=== PATIENT | female | born 1985 | race Caucasian/White ===

== ENCOUNTER 2016-08-28 15:16 | Inpatient (IN) | payer MEDICARE ==
[~2016-08-28] VITALS: Ht 157.5 cm; Wt 72.7 kg
[~2016-08-28 15:16] MED LIST: [UNRECOGNIZED DRUG - CODE] AFFECT_EYE
[2016-08-28 15:27] VITALS: BP 124/76; PULSE 91; RESP 16; O2SAT 98
[2016-08-28] MEDS ORDERED: SULF1TAB35 PO (15:34)
[2016-08-28] MEDS ORDERED: CEPH-512 PO (15:34)
--- NOTE | 2016-08-28 18:31 | ED.REPORT ---
HPI-Rash / Abscess Date of Service Aug 28, 2016 ED Provider: Corwin Leiva DO Pt is a 30 y.o. female who presents to the ED from [facility] c/o a rash onset 2 days ago. Pt states that she was seen at [facility] 2 days ago and dx with a right auxiliary infection after an I&D of an abscess, she was started on Bactrim and Keflex. Pt states that she began to develop fevers (101.7F) and that her infection was not improving so she went to the [facility]. They recommended that she come into the ED for further evaluation. Pt denies nausea, vomiting, diarrhea, and chills. She also denies additional abscesses or rashes. Nursing Notes Stated Complaint: INFECTION/FEVER- SENT BY [facility] Chief Complaint: Skin Rash/Abscess Nursing Notes Reviewed: Yes Allergies: Coded Allergies: ceftriaxone (Verified Allergy, Mild, rash, 08/28/16) cephalexin (Verified Allergy, Mild, Rash, 08/28/16) Penicillins (Verified Allergy, Unknown, Anaphylaxis, 02/02/16) Scheduled Cephalexin (Keflex) 500 Mg Capsule 500 MG PO QID Sulfamethoxazole/Trimeth 800-160 mg (Bactrim DS 800-160 mg) 1 Each Tablet 1 TABLET PO BID Scheduled PRN Aspirin/Acetaminophen/Caffeine (Qjasskw-Dnkiqburizyxb-Kwsf Tab) 250 Mg-250 Mg- 65 Mg Tablet 2 EACH PO Q8H PRN PRN For Headache Ibuprofen (Ibuprofen) 200 Mg Capsule 200-400 MG PO QID PRN PRN For Pain General Time Seen by MD: 18:31 Chief Complaint Rash Hx Obtained From: Patient Arrived By: Walk-in Onset Occurred: 2 days ago Symptom Duration: Since onset Location: : Axilla Quality: Painful Severity: Current: Severe Recent Healthcare: Recent doctor visit Past Medical History Past Medical History anxiety pseudo-seizures partially deaf Past Surgical History Denies Family History noncontributory Smoking History Never Smoker Social History Alcohol Use: "Social" Drug Use: Denies drug use Other Social History: Good social support Ambulatory Status Independent Review of Systems Constitutional: Reports: Fever (101.7F), Denies: Chills GI: Denies: Diarrhea, Nausea, Vomiting Skin: Reports Rash Complete sys rev & neg: except as marked. Physical Exam Initial Vital Signs Vital Signs (First) Date Time Temp Pulse Resp B/P Pulse Ox O2 Delivery O2 Flow Rate FiO2 3/9/17 15:27 37.4 91 16 124/76 98 Room Air Initial VS: Reviewed Head / Eyes: Atraumatic, Normocephalic Abdomen / GI: No distention Extremities: Vascular intact, Neuro intact Neurologic: Alert, Oriented, Nonfocal Psychiatric: Mood/affect normal, Behavior normal, Normal thought content General/Constitutional: Awake, Alert, Well appearing Skin: Warm, Dry Rash / Lesion Location: Positive: Arm R, Axilla (cellulitic, surrounding abscess) Abscess Notes: Drained abscess with packing present Abscess #1 Location/Condition: Positive: Axilla R... Respiratory / Chest: Atraumatic, Breath sounds NL, Breath sounds = bilat, No respiratory distress, No rales, No rhonchi, No wheezing, No retractions, No stridor Cardiovascular: Heart rate NL, Regular rhythm, Heart sounds NL, Peripheral circulation NL Interpretation & Diagnostics Lab Results Interpretation Result Diagram: 08/28/16 1900 08/28/16 1900 Test 08/28/16 19:00 08/28/16 22:16 White Blood Count 12.2th/mm3 (3.8-10.1) Red Blood Count 4.30mil/mm3 (3.90-5.20) Hemoglobin 12.2g/dL (12.0-15.6) Hematocrit 36.9% (35.0-46.0) Mean Corpuscular Volume 85.8fL (81-100) Mean Corpuscular Hemoglobin 28.4pg (27.0-35.0) Mean Corpuscular Hemoglobin Concent 33.1% (32.0-37.0) Red Cell Distribution Width 12.2% (12.3-15.4) Platelet Count 314bil/L (150-400) Neutrophils (%) (Auto) 62.6% (40-74) Lymphocytes (%) (Auto) 23.8% (14-46) Monocytes (%) (Auto) 6.8% (4-12) Eosinophils (%) (Auto) 6.2% (0-5) Basophils (%) (Auto) 0.3% (0-3) Hold Purple Top Tube Received (Received) Hold Blue Top Tube Received (Received) Sodium Level 135mEq/L (134-144) Potassium Level 3.8mEq/L (3.5-5.2) Chloride Level 99mEq/L (97-108) Carbon Dioxide Level 21mmol/L (18-29) Blood Urea Nitrogen 11mg/dL (6-20) Creatinine 1.14mg/dL (0.57-1.00) Estimat Glomerular Filtration Rate 80mL/min (>59) Glucose Level 89mg/dL (60-99) Lactic Acid Level 1.6mmol/L (0.4-2.0) Calcium Level 8.8mg/dL (8.5-10.1) Total Bilirubin 0.2mg/dL (0.0-1.2) Aspartate Amino Transf (AST/SGOT) 19U/L (0-50) Alanine Aminotransferase (ALT/SGPT) 14U/L (0-32) Alkaline Phosphatase 60U/L (25-150) Total Protein 6.7g/dL (6.4-8.4) Albumin 3.9g/dL (3.4-5.0) HCG Beta Subunit 0.500mIU/mL Hold [place] Top Tube Received (Received) Hold [place] Top Tube Received (Received) Hold Urine Received (Received) US Soft Tissue/Musculoskeletal IMPRESSION: Phlegmonous appearing area distal to the recently drained abscess in the right axilla. No defined abscess or loculated fluid collections are identified. Dictated by: Sy Bhagat M.D. on 08/28/2016 at 21:35 Approved by: Sy Bhagat M.D. on 08/28/2016 at 21:39 Re-Eval/Medical Decision Re-Evaluation/Progress : Time of Eval: 20:41 Re-Evaluation/Progress Note: Pt rechecked. Pt is reacting poorly to Rocephin and now has hives present. Discussed plan for admit. Consultation #1: Referral / Consult Name: Golden Nuno MD Call Returned at: 21:44 [employer] Supervisor: Will see patient, Agrees with eval, Agrees with plan Note: Discussed pt condition. Would like CT performed and pt NPO after midnight. Consultation #2: Referral / Consult Name: Db Santacruz MD Consulted With: Hospitalist Call Returned at: 22:01 Note: Discussed pt condition and consult with Dr. Nuno. Accepts admit. Counseled Regarding: Diagnosis Discharge & Departure Impression: Primary Impression: Cellulitis Site of cellulitis: extremity Site of cellulitis of extremity: upper extremity Laterality: right Qualified Code: L03.113 - Cellulitis of right upper limb Additional Impression: Abscess Disposition: ADMITTED TO HOSPITAL Discharge Condition All VS Reviewed: Yes Condition: Improved Referrals: [facility] (PCP) Cierra Attestation Portions of this note were transcribed by Klaus Baires. I, Dr. Leiva personally performed the history, physical exam and medical decision-making; I reviewed and confirmed the accuracy of the information in the transcribed note. Signed by : Cierra Dominique, 08/28/16 and 2204. copies to: [facility] Corwin Leiva DO Aug 28, 2016 18:31 KLAUS BAIRES Aug 28, 2016 19:16
[2016-08-28] MEDS ORDERED: cefTRIAXone Inj 2,000 MG in Dextrose 5% Minibag Plus 50 ML IV ONE (19:35)
[2016-08-28 19:37] LABS: BASOPHILS % (AUTO) 0.3 % (0-3); EOSINOPHILS % (AUTO) 6.2 % (0-5); MONOCYTES % (AUTO) 6.8 % (4-12); Mean Corpuscular Hemoglobin 28.4 pg (27.0-35.0); Mean Corpuscular Volume 85.8 fL (81-100); NEUTROPHILS % (AUTO) 62.6 % (40-74); Platelet Count 314 bil/L (150-400)
[2016-08-28] MEDS: HYDROmorphone 0.5 mg/0.5 mL iSecure Syringe IVPUSH PRN (20:19)
[2016-08-28] MEDS ORDERED: MethylprednisoLONE Sodium Succinate 62.5 mg/mL 2 mL Inj IVPUSH ONE (20:45)
[2016-08-28 21:15] VITALS: BP 126/85; PULSE 94; RESP 20; O2SAT 100
--- NOTE | 2016-08-28 21:40 | DRSVH ---
PROCEDURE: US EXTREMITY SONOGRAM LIMITED ([id number]) INDICATIONS: right arm infection, look for abscess TECHNIQUE: Real-time scanning was performed of the right upper extremity, with image documentation. COMPARISON: None. FINDINGS: There has been in the right upper arm an abscess drained on 08/26/16 and the axillary area. I n this area there is artifact from hair. Distal to this and thought to be in the arm is an irregular hypoechoic area thought to be developing abscess. It is somewhat phlegmonous and measures overall 28 x 6 x 14 mm. It is not a fluid collection that is drainable by needle at this point. It is not encaps ulated and no prominent flow around it is seen. IMPRESSION: Phlegmonous appearing area distal to the recently drained abscess in the right axilla. No defined abscess or loculated fluid collections are identified. Dictated by: Sy Bhagat M.D. on 08/28/2016 at 21:35 Approved by: Sy Bhagat M.D. on 08/28/2016 at 21:39
[2016-08-28] MEDS ORDERED: ASPI-1148 PO (21:54)
[2016-08-28] MEDS ORDERED: IBUP200C PO (21:54)
[2016-08-28] MEDS ORDERED: Polyethylene Glycol (PEG) 17 Gm Powder PO PRN (22:25)
[2016-08-28] MEDS ORDERED: Ondansetron 2 mg/mL 2 mL Inj IVPUSH PRN (22:25)
[2016-08-28] MEDS ORDERED: Alum-Mag Hydrox-Simeth 30 mL Suspension PO PRN (22:25)
[2016-08-28 22:49] VITALS: BP 120/74; PULSE 91; RESP 16; O2SAT 98
[2016-08-28 23:10] VITALS: BP 105/80; PULSE 80; RESP 18; O2SAT 96
[2016-08-28] MEDS: Vancomycin Dose per Pharmacist XX SCH (23:10)
--- NOTE | 2016-08-28 23:32 | PCM.HPMED ---
Subjective Date of Service Aug 28, 2016 Primary Provider: Admitting Physician: [facility]: Admit Status: From the Emergency Department Chief Complaint: arm pain, redness, and swelling History of Present Illness: 30-year-old female with history of left axillary abscess drainage one month ago presented to the emergency department with increasing swelling, redness and pain after drainage of right axillary abscess at [facility] emergency Department 2 days ago. She first noticed development of the cyst in her right axilla about 2 weeks ago in that time it has become increasingly inflamed and growing in size. Patient was placed on Bactrim at the time of drainage which she was treated with after her left axillary incision and drainage with no complications. She was seen in the residency clinic yesterday and placed additionally on Keflex, a line was drawn around the area of erythema for monitoring purposes. Last night patient began feeling generally worse with chills and sweats, she also had decreased appetite and nausea without vomiting. She reports muscle aches throughout her body worse in her right upper extremity and joint pain in her elbow and wrist of her right arm. She reports a fever measured at 101.7 this morning. Upon presentation to the emergency department redness had extended past the marking. Additionally, Patient had hives, she was started on ceftriaxone and hives began to acutely worsen starting with her chest attributable to the ceftriaxone, she was given 50 mg Benadryl and 125 mg Methylprednisolone with resolution of hives by the time of our visit. Review of Systems: A comprehensive review of systems was conducted with the patient and found to be negative except as above in the History of Present Illness. Allergies Coded Allergies: ceftriaxone (Verified Allergy, Mild, rash, 09/03/16) cephalexin (Verified Allergy, Mild, Rash, 09/03/16) Penicillins (Verified Allergy, Unknown, Anaphylaxis, 09/03/16) Uncoded Allergies: IV Benadryl (Adverse Reaction, Intermediate, 08/29/16) felt like she had no control of her own body Home Medications 1. Excedrin when necessary for headaches 2. Bactrim double strength daily 3. Keflex 500 twice a day for 2 doses PMH 1. 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 Pseudoseizures, patient was on Topamax for about 7 years and discontinued last November. 3. Partially deaf 4. Anxiety 5. Painful breast lumps, recurring, status post left lumpectomy Surgical History Left breast lumpectomy one year ago Family History Paternal grandfather with prostate cancer, paternal grandmother with ovarian cancer Mother with breast cancer Maternal grandfather with heart attack Maternal grandmother with lung cancer Social History Occupation: online marketing Hx Alcohol Use: Yes Alcoholic Drinks Per Day: 2-3 glasses red wine, 2-3 days per week Hx Substance Use: No Hx Tobacco Use: No Smoking Status: Never Smoker Living Arrangement: with Family (single mother of 4-year-old boy) with Friends/Roommate (hospital remained) Exam Vital Signs Vital Sign - Last Date Time Temp Pulse Resp B/P Pulse Ox O2 Delivery O2 Flow Rate FiO2 08/28/16 22:49 37.4 91 16 120/74 98 08/28/16 21:15 Room Air Exam General: No acute distress, well-developed, well-nourished, appropriately interactive HEENT: Normocephalic, atraumatic. External ears without defect. Pupils equal, round, and reactive to light and accommodation. Anicteric sclerae, moist conjunctivae, and no lid lag. Oropharynx free of erythema with moist mucosa. Neck: Supple with full range of motion. No jugular venous distension. No lymphadenopathy or thyromegaly. Cardiovascular: Regular rate and rhythm with no murmurs, rubs, or gallops appreciated Pulmonary: Clear to auscultation bilaterally with no crackles, wheezes, or rhonchi. Normal respiratory effort with no use of accessory muscles. Abdomen: Bowel tones present. Soft, nontender, nondistended. No hepatosplenomegaly or masses appreciated. Extremities: Right upper extremity with mild erythema radiating from the axilla , pen line in place with mild erythema reaching beyond medication. Wick in place with pus and sero-sanguineous discharge. No defect or lump felt in left axilla, no discharge present, well-healed scar from prior I&D. No clubbing, cyanosis, edema, or lymphadenopathy appreciated. Skin: With the exception of right upper extremity Normal temperature, turgor, and texture; no rash, ulcers, or subcutaneous nodules appreciated. Neurological: Cranial nerves grossly intact. Normal muscle strength, tone, and bulk. No known gait impairment. Psychiatric: Normal mood and affect. Alert and oriented to person, place, and time. Lab and Diagnostics Result Diagram: 3/9/17 1900 3/9/17 1900 Additional Diagnostics: PROCEDURE: US EXTREMITY SONOGRAM LIMITED ([id number]) FINDINGS: There has been in the right upper arm an abscess drained on 08/26/16 and the axillary area. In this area there is artifact from hair. Distal to this and thought to be in the arm is an irregular hypoechoic area thought to be developing abscess. It is somewhat phlegmonous and measures overall 28 x 6 x 14 mm. It is not a fluid collection that is drainable by needle at this point. It is not encapsulated and no prominent flow around it is seen. IMPRESSION: Phlegmonous appearing area distal to the recently drained abscess in the right axilla. No defined abscess or loculated fluid collections are identified. Dictated by: Sy Bhagat M.D. on 08/28/2016 at 21:35 Assessment & Plan 30-year-old female with history of left axillary abscess drainage one month ago presented to the emergency department with increasing swelling, redness and pain after drainage of right axillary abscess at [facility] emergency Department 2 days ago. 1. Right axillary and upper arm cellulitis with abscess, present on admission, active. -Right axilla tender, warm, with advancing redness. WBC 12.2. -Symptoms progressive despite 2-day outpatient treatment with Bactrim and 2 doses of Keflex. -Agree with 1 g Vancomycin IV q 12 hrs started emergency department -Add Levofloxacin 750 mg Q24H -Noroco 5/325 PRN pain -Lactic acid 1.6 -Procalcitonin and CBC with differential in the morning -Will attempt to contact [place] for abscess fluid culture results -Patient to be kept NPO -Case discussed with Dr. Nuno of general surgery, he will see patient in AM with possible procedure. Surgery consult ordered. Day team to follow up her recommendations 2. Likely Hidradenitis suppurativa, present on admission, active. -Diagnosis supported by Typical lesions (abscesses), locations (axillae), and relapse (previous treatment of left axilla abscess). -Patient notes scrapping with razor to precipitate condition -Treatment includes weight management. Avoidance of dairy foods and high glycemic load diets which have been shown to be helpful, even in non-obese patients. 3. Cephalosporin allergy, chronic, resolved. -Childhood allergy to penicillin -Mild hives noted upon presentation to ED (patient was on Keflex). -Hives acutely worsened with dose of 2g Ceftriaxone in ED. -Treated with 125 mg Methylprednisolone and 50 mg Diphenhydramine. 4. Acute Kidney injury, present on admission, presumed acute -Creatinine elevated to 1.14 upon presentation with a BUN of 11, in March 2016 creatinine was 0.83 -Possibly due to dehydration or possibly acute interstitial nephritis as a drug reaction from antibiotics -Urinalysis pending -1 L NS to be given at a rate of 150 mL per hour -BNP in the a.m. -Consider nephrology consult if this does not resolve 5. Migraine with occasional hemiplegic features, present on admission, chronic. -Patient previously received Topamax for seven years but discontinued treatment last November. -Patient reports 2-3 migraines/yr adequately treated with Advil. -Last episode (04/01/2016) mimicked stroke, however, hemiplegic features resolved with migraine treatment. 6. Anxiety, present on admission, chronic. -Patient states desire to holistically treat anxiety 7. Pseudoseizures, present on admission, chronic. -Patient states controlled without medication. No record of events found. Acetaminophen for mild pain when necessary. Bowel regimen Senna and MiraLAX PRN. Zofran when necessary for nausea and vomiting. DVT prophylaxis with sub cutaneous Lovenox Patient was admitted under inpatient status with expected length of stay greater than 2 midnights due to severity of presenting symptoms, risk of adverse event, and complexity of treatment plan. Pain Evaluation: Adequate Pain Control GI Prophylaxis: Not indicated VTE Prophylaxis: Sub-Q Enoxaparin VTE Mechanical Devices: Intermittant Pneumatic CD Resuscitation Status: CPR: Attempt Resuscitation Attending Statement The patient was seen and examined together with Dr. Cruz on 08/28 and I agree with the history, exam and plan as outlined in the note above. copies to: Ray Pace Erika R DO Aug 28, 2016 23:32 Db Santacruz MD Aug 29, 2016 05:14
[2016-08-29] MEDS: levoFLOXacin Inj 750 MG in IV Premix 1 EACH IV SCH ×2 (00:32→22:33)
[2016-08-29] MEDS: HYDROcodone-APAP 5-325 mg Tablet PO PRN ×5 (00:33→22:35)
[2016-08-29] MEDS ORDERED: HYDR-4003 PO (00:39)
[2016-08-29] MEDS ORDERED: SULF1TAB35 PO (00:39)
[2016-08-29] MEDS ORDERED: CEPH500C PO (00:39)
[2016-08-29] MEDS ORDERED: IBUP800T28 PO (00:39)
--- NOTE | 2016-08-29 02:59 | NUR ---
Admit Patient arrived to unit at 2310, able to self transfer to bed. Oriented to room, and call light. Admission completed, patient denies CP, SOB, and abdominal pain at this time. Right Auxiliary pain at 7/10.
[2016-08-29 04:31] LABS: APPEARANCE,URINE SLIGHTLY CLOUDY (CLEAR,HAZY); COLOR,URINE YELLOW (YELLOW); OCCULT BLOOD,URINE NEGATIVE (NEGATIVE); UROBILINOGEN,URINE NORMAL (NORMAL)
[2016-08-29 04:38] VITALS: BP 115/67; PULSE 80; RESP 20; O2SAT 98
[2016-08-29] MEDS: 0.9% Sodium Chloride 1,000 ML IV SCH ×3 (05:06→17:20)
--- NOTE | 2016-08-29 06:25 | NUR ---
Pain Pain not adequately controlled with 1 [place], 2 tabs provided improved pain relief. Pt has been NPO for anticipated procedure. Minimal drainage from wick site. Hourly rounding ongoing.
[2016-08-29 07:43] LABS: BASOPHILS % (AUTO) 0.1 % (0-3); EOSINOPHILS % (AUTO) 0 % (0-5); MONOCYTES % (AUTO) 0.8 % (4-12); Mean Corpuscular Hemoglobin 28.3 pg (27.0-35.0); NEUTROPHILS % (AUTO) 93.1 % (40-74); Platelet Count 310 bil/L (150-400)
[2016-08-29] MEDS: Vancomycin Dose per Pharmacist XX SCH (08:30)
[2016-08-29] MEDS: Vancomycin 1 Gm/200 mL NS Premix IV SCH ×2 (09:01→19:48)
[2016-08-29] MEDS: HYDROmorphone 0.5 mg/0.5 mL iSecure Syringe IVPUSH PRN (09:02)
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
--- NOTE | 2016-08-29 11:21 | NUR ---
Social Work- Initial Assessment Data: See Initial Assessment. Pt is a 30 year old female admitted 08/28/16 for abscess per H&P. Pt's insurance is [employer]. Pt's PCP is Soraida Negron at the [facility]idency [facility]. BASILIA met with pt and friend Rose [phone] at bedside regarding discharge plan, SW role explained. Pt alert and oriented x3. Pt resides in [place] with her son and roommate where she remains independent with her ADLs. Pt [place] no DME at base and drives. Pt has no HH or SNF history. Pt has no LTC insurance or VA benefits. SW spoke with pt regarding DPOA, SW provided DPOA paperwork. Pt to discharge home with friend to transport via POV. No anticipated discharge needs. SW will continue to follow. Assessment: [place]. Plan: Pt to discharge home with friend to transport via POV. No anticipated discharge needs. SW will continue to follow. SCOTT Romero Addendum: 08/29/16 at 1124 by ROSANNE PINEDA Amended: Links added.
[2016-08-29 11:38] VITALS: BP 160/75; PULSE 104; RESP 20; O2SAT 97
[2016-08-29] MEDS ORDERED: predniSONE 20 mg Tablet PO ONE (16:35)
[2016-08-29 17:05] LABS: BASOPHILS % (AUTO) 0.1 % (0-3); EOSINOPHILS % (AUTO) 0.4 % (0-5); MONOCYTES % (AUTO) 7.1 % (4-12); NEUTROPHILS % (AUTO) 83.2 % (40-74); Platelet Count 342 bil/L (150-400)
[2016-08-29 17:20] VITALS: BP 130/81; PULSE 90; RESP 16; O2SAT 100
[2016-08-29] MEDS: diphenhydrAMINE 25 mg Capsule PO PRN (17:24)
[2016-08-29 17:31] LABS: Bilirubin, Direct 0.2 mg/dL (0.0-0.3)
--- NOTE | 2016-08-29 18:28 | PCM.PHAPRO ---
Progress Date of Service: Aug 29, 2016 arm pain, redness, and swelling Vancomycin Management Per Pharmacy: Indication: Cellulitis Age: 30 yo Weight: 72.7 kg Labs: WBC:12.2 -> 10.8 SrCr: 1.14 -> 0.8 mg/dL Vitals: BP: Stable HR: 80-100 BPM Temp: No fevers Nephrotoxic Risks: Bactrim use outpatient Recommendation: Load: Vancomycin 1500 mg IV x 1 (20 mg/kg in ED last night) Maintenance: 1000 mg IV Q12h (~14 mg/kg/dose), dosing on lower end due to mild CAROL on admit and outpt Bactrim use which may still be affecting renal clearance Trough: Tomorrow on 08/30 @ 1999, may need increase at that time Thank You, Grace Navarrete, Pharm D. Grace Navarrete Aug 29, 2016 18:28
--- NOTE | 2016-08-29 18:48 | NUR ---
Pain/cellulitis Patient with pain rated 7-8/10 to right axilla area. Axilla area red, swollen and with small amount ooze from site after surgeon was here and removed wick from incision site. Patient will be reevaluated tomorrow to assess if needed for surgical drainage. Patient with noted rash to upper chest and neck which increased this afternoon . patient was given oral Benadryl and prednisone. Pt had some time of euphoria with iv Benadryl but does take po Benadryl at home with no problems.
[2016-08-29] MEDS: Famotidine Inj 20 MG in IV Premix 1 EACH IV SCH (19:47)
[2016-08-30 00:10] VITALS: BP 105/63; PULSE 81; RESP 18; O2SAT 98
[2016-08-30] MEDS: 0.9% Sodium Chloride 1,000 ML IV SCH ×4 (02:37→20:00)
--- NOTE | 2016-08-30 03:15 | NUR ---
Pain Pain medication ineffective at this time. Pt c/o pain within 2 hours of receiving. States no change in level of pain. Wound actively draining sanguineous fluid with little pressure. Hard lumps noted surrounding wound, painful with palpation. locations one medial and one superior of wound. Denial of CP, SOB abdominal discomfort. C/O axilla pain 7/10 shooting into shoulder. Ice pack given upon request.
[2016-08-30 04:50] VITALS: BP 107/66; PULSE 87; RESP 20; O2SAT 96
[2016-08-30] MEDS: HYDROcodone-APAP 5-325 mg Tablet PO PRN ×4 (05:07→21:05)
[2016-08-30 07:14] LABS: BASOPHILS % (AUTO) 0.1 % (0-3); EOSINOPHILS % (AUTO) 0.5 % (0-5); MONOCYTES % (AUTO) 4.9 % (4-12); Mean Corpuscular Hemoglobin 27.6 pg (27.0-35.0); Mean Corpuscular Volume 85.5 fL (81-100); NEUTROPHILS % (AUTO) 85.7 % (40-74); Platelet Count 322 bil/L (150-400)
[2016-08-30 07:34] LABS: Magnesium 1.9 mg/dL (1.6-2.6); Phosphorus 2.5 mg/dL (2.5-4.9)
[2016-08-30] MEDS ORDERED: predniSONE 20 mg Tablet PO SCH (08:00)
[2016-08-30] MEDS: Vancomycin Dose per Pharmacist XX SCH (08:30)
[2016-08-30] MEDS: HYDROmorphone 1 mg/mL Inj IVPUSH PRN ×3 (08:56→23:36)
[2016-08-30] MEDS: diphenhydrAMINE 25 mg Capsule PO PRN ×2 (08:58→21:13)
[2016-08-30] MEDS: Vancomycin 1 Gm/200 mL NS Premix IV SCH (09:04)
[2016-08-30] MEDS: Famotidine Inj 20 MG in IV Premix 1 EACH IV SCH ×2 (09:04→19:49)
[2016-08-30 10:02] VITALS: BP 125/81; PULSE 96; RESP 17; O2SAT 99
--- NOTE | 2016-08-30 11:05 | PCM.PNSURG ---
Subjective Date of Service: Aug 30, 2016 Visit Information: Recurrent cellulitis R Axilla Date of Admission: Aug 28, 2016 at 23:40 Hospital Day # 2 Subjective: Packing removed and washed area yesterday Objective Vital Sign- Last 8 Hours Date Time Temp Pulse Resp B/P Pulse Ox O2 Delivery O2 Flow Rate FiO2 08/30/16 10:02 36.7 96 17 125/81 99 Room Air 08/30/16 04:50 36.5 87 20 107/66 96 Room Air Intake and Output- Last 8 Hour 08/30/16 Cumulative From/Thru 07:00 08/28/16 15:27 - 08/30/16 04:51 Intake Total 1720 ml 2920 ml Output Total 1600 ml Balance 1720 ml 1320 ml Intake Oral 1200 ml IV Total 1720 ml 1720 ml Output Urine Total 1600 ml SURGICAL WOUND : Wound Location/Description No residual cellulitis Result Diagram: 08/30/16 0640 08/30/16 0640 Assessment & Plan Impression Doing well Problems: Plan No indication for surgical intervention Could be hidradenitis suppurativa. Discussed supportive measures Okay to discharge Please call if any question VTE Prophylaxis: Sub-Q Enoxaparin Thang Perez MD Aug 30, 2016 11:05
[2016-08-30] MEDS ORDERED: diphenhydrAMINE-Zinc 2%-0.1% 30 Gm Cream TOPICAL PRN (11:25)
--- NOTE | 2016-08-30 12:34 | PCM.PNMED ---
Subjective Date of Service Aug 30, 2016 Subjective patient was still symptomatic, noticed large amount of purulent discharge, self drained by patient overnight, yesterday pt c/o spreading rash so [id number] given, STAT cmp didn't show any eosinophils, no transaminitis. pt remained afebrile c/o itchiness with vancomycin so benadryl is given. cleared from surgery this AM Exam Vital Signs Vital Sign - Last Date Time Temp Pulse Resp B/P Pulse Ox O2 Delivery O2 Flow Rate FiO2 08/30/16 10:02 36.7 96 17 125/81 99 Room Air Intake and Output 08/29/16 08/29/16 08/30/16 Cumulative From/Thru 15:00 23:00 07:00 08/28/16 15:27 - 08/30/16 04:51 Intake Total 800 ml 1720 ml 2920 ml Output Total 800 ml 1600 ml Balance 0 ml 1720 ml 1320 ml Intake Oral 800 ml 1200 ml IV Total 1720 ml 1720 ml Output Urine Total 800 ml 1600 ml Exam NAD, comfortably laying down on the bed diffuse very mild erythema on anterior chest, proximal bilateral UE. no JVD, MMM, no LAD RRR, nl s1, s2 no mrg CTAB, no w,c S,ND,NT,normoactive BS+ warm, no edema, pulses 2/2 MSK: Rt axilla , mild indurated closed ulcer, soft, no fluctuance, erythema- markedly improved. IVs and Medications Medications Reviewed: Medications were reviewed in detail Lab and Diagnostics Result Diagram: 08/30/16 0640 08/30/16 0640 Additional Diagnostics PROCEDURE: US EXTREMITY SONOGRAM LIMITED ([id number]) FINDINGS: There has been in the right upper arm an abscess drained on 08/26/16 and the axillary area. In this area there is artifact from hair. Distal to this and thought to be in the arm is an irregular hypoechoic area thought to be developing abscess. It is somewhat phlegmonous and measures overall 28 x 6 x 14 mm. It is not a fluid collection that is drainable by needle at this point. It is not encapsulated and no prominent flow around it is seen. IMPRESSION: Phlegmonous appearing area distal to the recently drained abscess in the right axilla. No defined abscess or loculated fluid collections are identified. Dictated by: Sy Bhagat M.D. on 08/28/2016 at 21:35 Assessment & Plan 30-year-old female with history of left axillary abscess drainage one month ago presented to the emergency department with increasing swelling, redness and pain after drainage of right axillary abscess at [facility] emergency Department 2 days ago. acute, active 1. Right axillary and upper arm cellulitis with abscess, POA, likely from razor injury. Right axilla tender, warm, with progression of erythema, WBC 12.2. Symptoms progressive despite 2-day outpatient treatment with Bactrim and 2 doses of Keflex.Culture from [place] ED for abscess fluid showed (spoke to , ED physician) MRSA Sensitive to vanc, linezolid, dapto, Resistant to cipro, clinda, levo -started on vancomycin, added Levofloxacin 750 mg Q24H, clinically improving, will stop levofloxacin today given culture results. likely send home with linezolid 70-10days course. -Noroco 5/325 PRN pain, added dilaudid 1mg q4h -appreciate surgery input. no indication for surgery -Hidradenitis suppurativawas suspected, however, no chronic nature despite preceding left sided abscess, clear etiology of using razor, would treat as typical MRSA abscess/cellulitis. If it recurrent or unresolving likely needs further eval with dermatology, ID. -trends wbc, fever curve, pt still has persistent leukocytosis. #persistent diffuse erythema, developed with CFX allergy on adm, no signs of DRESS, most likely infusion reaction of vancomycin, will slow the rate, try benadryl, chronic, stable, resolved #PCN/Cephalosporin allergy, Childhood allergy to penicillin, Mild hives noted upon presentation to ED (patient was on Keflex), Hives acutely worsened with dose of 2g Ceftriaxone in ED, resolved with with 125 mg Methylprednisolone and 50 mg Diphenhydramine. #CAROL, POA, resolved with IVF #Migraine with occasional hemiplegic features, Patient previously received Topamax for seven years but discontinued treatment last November, Patient reports 2- 3 migraines/yr adequately treated with Advil. Last episode (04/01/2016) mimicked stroke, however, hemiplegic features resolved with migraine treatment. 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
[2016-08-30 16:48] VITALS: BP 124/74; PULSE 99; RESP 17; O2SAT 98
--- NOTE | 2016-08-30 18:03 | NUR ---
Pain/Cellulitis- Patient complaining of 7-8/10 right axillae pain. Vicodin and Ibuprofen given for discomfort. IV Dilaudid given for break through pain when oral not effective, and patient says it brings pain level to 3. She noticed increased redness in right arm and in left upper arm during Vanco infusion. Benadryl given during infusion along with topical cream with some relief of symptoms.
[2016-08-30] MEDS ORDERED: Vancomycin Serum Trough XX ONE (20:00)
[2016-08-30 20:54] VITALS: BP 134/92; PULSE 95; RESP 20; O2SAT 99
[2016-08-30] MEDS: Vancomycin Inj 1,250 MG in 0.9% Sodium Chloride 250 ML IV SCH (22:05)
[2016-08-31] MEDS: 0.9% Sodium Chloride 1,000 ML IV SCH ×3 (02:40→17:51)
--- NOTE | 2016-08-31 03:21 | PCM.PHAPRO ---
Progress arm pain, redness, and swelling VANCOMYCIN DOSING PER PHARMACY Indication: cellulitis Trough: 7.2 SCr: stable WBC: 13 ; afebrile Given subtherapeutic level, will increase dose to 1250mg q12hrs with trough scheduled for 09/01 @0930. Pharmacy will continue to monitor. Brendan Bro Aug 31, 2016 03:21
[2016-08-31] MEDS: HYDROcodone-APAP 5-325 mg Tablet PO PRN ×3 (04:47→18:41)
[2016-08-31 05:15] VITALS: BP 126/82; PULSE 87; RESP 20; O2SAT 100
[2016-08-31 06:03] LABS: BASOPHILS % (AUTO) 0.6 % (0-3); EOSINOPHILS % (AUTO) 9.1 % (0-5); MONOCYTES % (AUTO) 8.1 % (4-12); Mean Corpuscular Hemoglobin 27.8 pg (27.0-35.0); NEUTROPHILS % (AUTO) 42.7 % (40-74); Platelet Count 270 bil/L (150-400)
[2016-08-31 06:37] LABS: Magnesium 1.7 mg/dL (1.6-2.6); Phosphorus 3.2 mg/dL (2.5-4.9)
[2016-08-31] MEDS: Vancomycin Dose per Pharmacist XX SCH (08:30)
[2016-08-31] MEDS: Famotidine Inj 20 MG in IV Premix 1 EACH IV SCH ×2 (09:06→20:22)
[2016-08-31] MEDS: HYDROmorphone 1 mg/mL Inj IVPUSH PRN ×3 (09:18→21:30)
[2016-08-31] MEDS: Vancomycin Inj 1,250 MG in 0.9% Sodium Chloride 250 ML IV SCH ×2 (10:26→21:30)
[2016-08-31] MEDS: diphenhydrAMINE 25 mg Capsule PO PRN ×2 (10:50→17:51)
--- NOTE | 2016-08-31 12:47 | NUR ---
Dressing right axilla Removed gauze dressing that pt had taped to her right axilla. Small amount of dried serosanguineous drainage noted on gauze. No visible drainage from axilla noted now. Plastic tape also left red markings on pt's skin. Suggested that pt leave axilla open to air. Check pt's axilla for drainage later this a.m., and no drainage noted. Pt's skin remains slightly red near the axilla and distal also along the axillary line. Care continues.
[2016-08-31 14:29] VITALS: BP 123/85; PULSE 102; RESP 16; O2SAT 97
--- NOTE | 2016-08-31 14:55 | NUR ---
ANGÉLICA Signed SCOTT Spivey
--- NOTE | 2016-08-31 15:27 | PCM.PNMED ---
Subjective Date of Service Aug 31, 2016 Subjective Patient was seen and examined at bedside today. Patient denies any chest pain, shortness of breath, nausea, vomiting, diarrhea. Patient is concerned about her abscesses seems to be little anxious. Education was done today in order to help alleviate some of the patient's concerns. Exam Vital Signs Vital Sign - Last Date Time Temp Pulse Resp B/P Pulse Ox O2 Delivery O2 Flow Rate FiO2 08/31/16 14:29 36.1 102 16 123/85 97 Room Air Intake and Output 08/30/16 08/30/16 08/31/16 Cumulative From/Thru 15:00 23:00 07:00 08/28/16 15:27 - 08/31/16 06:58 Intake Total 400 ml 1236 ml 800 ml 5356 ml Output Total 700 ml 2650 ml 4950 ml Balance -300 ml 1236 ml -1850 ml 406 ml Intake Oral 400 ml 1236 ml 800 ml 3636 ml IV Total 1720 ml Output Urine Total 700 ml 2650 ml 4950 ml # Voids 1 4 5 10 # Bowel Movements 0 3 3 Exam Physical Exam: GEN: Patient was awake, alert, responding appropriately to questions HEENT: PERRLA, EOMI, Neck soft supple, trachea midline, nomocephalic/atraumatic CV: +S1/S2, RRR, no murmur auscultated Respiratory: CTAB, no wheezes, rales, rhonchi GI: +bowel sounds x4, soft, compressible, non TTP EXT: no c/c/e, right axilla I&D site dressing in place clean dry and intact, area is still mildly raised but non-erythematous or edematous. Skin: Macular rash secondary to medication allergies significantly improved, mild macular rash on anterior thorax significantly improved, positive tenderness to palpation in right axilla Neuro: CN II-XII grossly intact Psych: mood and affect were appropriate IVs and Medications Medications Reviewed: Medications were reviewed in detail Lab and Diagnostics Result Diagram: 08/31/1653308/31/16533 Additional Diagnostics PROCEDURE: US EXTREMITY SONOGRAM LIMITED ([id number]) FINDINGS: There has been in the right upper arm an abscess drained on 08/26/16 and the axillary area. In this area there is artifact from hair. Distal to this and thought to be in the arm is an irregular hypoechoic area thought to be developing abscess. It is somewhat phlegmonous and measures overall 28 x 6 x 14 mm. It is not a fluid collection that is drainable by needle at this point. It is not encapsulated and no prominent flow around it is seen. IMPRESSION: Phlegmonous appearing area distal to the recently drained abscess in the right axilla. No defined abscess or loculated fluid collections are identified. Dictated by: Sy Bhagat M.D. on 08/28/2016 at 21:35 Assessment & Plan 30-year-old female with history of left axillary abscess drainage one month ago presented to the emergency department with increasing swelling, redness and pain after drainage of right axillary abscess at [facility] emergency Department 2 days ago. acute, active Right axillary and upper arm cellulitis with abscess, POA, likely from razor injury. Right axilla tender, warm, with progression of erythema, WBC 12.2. Symptoms progressive despite 2-day outpatient treatment with Bactrim and 2 doses of Keflex.Culture from [place] ED for abscess fluid showed (spoke to , ED physician) MRSA Sensitive to vanc, linezolid, dapto, Resistant to cipro, clinda, levo -Continue on IV vancomycin, Levofloxacin 750 mg Q24H was discontinued on 2016 per culture results, clinically improving, likely send home with linezolid 7-10days course. -Noroco 5/325 PRN pain, stop dilaudid 1mg q4h -appreciate surgery input. no indication for surgery -Hidradenitis suppurativawas suspected, however, no chronic nature despite preceding left sided abscess, clear etiology of using razor, would treat as typical MRSA abscess/cellulitis. If it recurrent or unresolving likely needs further eval with dermatology and ID. -trend wbc, fever curve, pt still has persistent leukocytosis. Allergic drug reaction to vancomycin (macular rash) -Persistent diffuse erythema (improved), developed with CFX allergy on adm, no signs of DRESS (drug rash with eosinophilia and systemic symptoms) - Most likely infusion reaction of vancomycin, the patient has responded well with a decreased rate of infusion and Benadryl chronic, stable, resolved #PCN/Cephalosporin allergy, Childhood allergy to penicillin, Mild hives noted upon presentation to ED (patient was on Keflex), Hives acutely worsened with dose of 2g Ceftriaxone in ED, resolved with with 125 mg Methylprednisolone and 50 mg Diphenhydramine. #CAROL, POA, resolved with IVF #Migraine with occasional hemiplegic features, Patient previously received Topamax for seven years but discontinued treatment last November, Patient reports 2- 3 migraines/yr adequately treated with Advil. Last episode (04/01/2016) mimicked stroke, however, hemiplegic features resolved with migraine treatment. 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 The patient will receive 1 more day of IV antibiotics and will be continued to monitored for any further signs of allergies to medications. The patient will most likely be discharged home on linezolid tomorrow barring any further drug reactions or other adverse reactions. GI Prophylaxis: Not indicated VTE Prophylaxis: Sub-Q Enoxaparin VTE Mechanical Devices: Intermittant Pneumatic CD Time spent Greater than 35 minutes Diana Barbosa DO Aug 31, 2016 15:00
--- NOTE | 2016-08-31 15:51 | NUR ---
Pain, swelling Pt reports increased swelling and hardened lump in her right axilla. Lump is quarter-size, reddened, and hot to the touch. Pt states that the lump has become larger today and has increased her pain. Hospitalist notified of this finding via [employer] page. Administered 1 mg IVP Dilaudid for pt's pain. Pt has also received 800 mg Motrin and 2 hydrocodone tabs for pain, and 25 mg PO Benadryl for itching. Pt c/o itching in the right axilla and bilateral thighs also. Hospitalist called and stated she would come see pt again. Care continues.
[2016-08-31 20:44] VITALS: BP 119/82; PULSE 104; RESP 18; O2SAT 98
[2016-09-01] MEDS: HYDROcodone-APAP 5-325 mg Tablet PO PRN ×2 (00:51→08:25)
--- NOTE | 2016-09-01 01:30 | NUR ---
Pain Pt reporting pain to right armpit 6-03/01 and is taking [address] Pt reporting headache that usually comes after taking Lane, pt was given Motrin for this. Pt did need med for breakthrough pain relief, given IV Dilaudid 1mg. On reassessment, pt sleeping and appears comfortable. Ice packs on and off to right armpit. Right armpit slightly pink, swollen. Continue to monitor.
[2016-09-01] MEDS: 0.9% Sodium Chloride 1,000 ML IV SCH ×4 (03:39→16:54)
[2016-09-01 05:20] VITALS: BP 118/76; PULSE 104; RESP 18; O2SAT 100
[2016-09-01 06:47] LABS: Mean Corpuscular Hemoglobin 27.5 pg (27.0-35.0); Mean Corpuscular Volume 85.7 fL (81-100)
[2016-09-01 08:20] VITALS: BP 109/66; PULSE 102; RESP 16; O2SAT 97
[2016-09-01] MEDS: Famotidine Inj 20 MG in IV Premix 1 EACH IV SCH ×2 (08:25→20:30)
[2016-09-01] MEDS: Vancomycin Dose per Pharmacist XX SCH (08:30)
[2016-09-01] MEDS ORDERED: Vancomycin Serum Trough XX ONE (09:30)
--- NOTE | 2016-09-01 11:33 | PCM.PHAPRO ---
Progress Vancomycin Management: -pt is currently receiving Vancomycin 1.25gm iv q12 for cellulitis -trough level returned this morning at 9.6 -goal level for cellulitis is 10-15 -serum creatinine 0.83, afebrile, wbc 7.8 -will continue with current regimen and monitor Aniya Pace [facility] Sep 01, 2016 11:33
[2016-09-01] MEDS: Vancomycin Inj 1,250 MG in 0.9% Sodium Chloride 250 ML IV SCH (11:37)
--- NOTE | 2016-09-01 13:05 | PCM.DIMED ---
Discharge Instructions Date of Service Sep 01, 2016 Dates of Hospitalization Aug 28, 2016 at 23:40 Discharge Diagnosis Discharge Diagnosis Right axillary cellulitis with abscess Vancomycin reaction Acute kidney injury (resolved) Anxiety Migraine Medication Instructions Please take all of her medications as prescribed please do not save any pills or a later use. Diet Heart Healthy Activity No restrictions (gradually return to normal daily activities) Call your provider Fever or Chills, Shortness of breath, Vomitting, Excessive diarrhea, Weakness ( unilateral) Patient Instructions Follow-up with PCP in: 1 week (Dr. Delong [phone] if an appointment has not been made please call to schedule an appointment) Diana Barbosa DO Sep 01, 2016 12:45
[2016-09-01] MEDS ORDERED: LINE600T7 PO (13:09)
--- NOTE | 2016-09-01 13:45 | PCM.DC.MED ---
Discharge Summary Date of Service Sep 01, 2016 Dates of Hospitalization Date of Hospital Admission Aug 28, 2016 at 23:40 Date of Discharge: Sep 01, 2016 Providers: Admitting Physician: Db Santacruz MD Primary Care Physician: WILLIAM [facility] Residency Attending Physician: Db Santacruz MD Diagnosis at Time of Discharge Diagnosis at Time of Discharge Right axillary cellulitis with abscess Vancomycin reaction Acute kidney injury (resolved) Anxiety Migraine Consultations Surgery Dr. godinez Procedures Other Diagnostics PROCEDURE: US EXTREMITY SONOGRAM LIMITED ([id number]) FINDINGS: There has been in the right upper arm an abscess drained on 08/26/16 and the axillary area. In this area there is artifact from hair. Distal to this and thought to be in the arm is an irregular hypoechoic area thought to be developing abscess. It is somewhat phlegmonous and measures overall 28 x 6 x 14 mm. It is not a fluid collection that is drainable by needle at this point. It is not encapsulated and no prominent flow around it is seen. IMPRESSION: Phlegmonous appearing area distal to the recently drained abscess in the right axilla. No defined abscess or loculated fluid collections are identified. Dictated by: Sy Bhagat M.D. on 08/28/2016 at 21:35 Brief History 30-year-old female with history of left axillary abscess drainage one month ago presented to the emergency department with increasing swelling, redness and pain after drainage of right axillary abscess at [facility] emergency Department 2 days ago. She first noticed development of the cyst in her right axilla about 2 weeks ago in that time it has become increasingly inflamed and growing in size. Patient was placed on Bactrim at the time of drainage which she was treated with after her left axillary incision and drainage with no complications. She was seen in the residency clinic yesterday and placed additionally on Keflex, a line was drawn around the area of erythema for monitoring purposes. Last night patient began feeling generally worse with chills and sweats, she also had decreased appetite and nausea without vomiting. She reports muscle aches throughout her body worse in her right upper extremity and joint pain in her elbow and wrist of her right arm. She reports a fever measured at 101.7 this morning. Upon presentation to the emergency department redness had extended past the marking. Additionally, Patient had hives, she was started on ceftriaxone and hives began to acutely worsen starting with her chest attributable to the ceftriaxone, she was given 50 mg Benadryl and 125 mg Methylprednisolone with resolution of hives by the time of our visit. Hospital Course 30-year-old female with history of left axillary abscess drainage one month ago presented to the emergency department with increasing swelling, redness and pain after drainage of right axillary abscess at [facility] emergency Department 2 days ago. Patient responded well to antibiotic therapy. Patient's vancomycin rash also completely resolved. Erythema in the right axillary region receded with IV antibiotic administration and completely resolved by the time of discharge. Patient still had some cellulitic masses in the axilla that were tender to palpation. Patient is encouraged to continue her antibiotic therapy for the next 10 days linezolid 600 mg twice a day this will complete a full 14 day course of antibiotics. The patient has been instructed that she needs to follow -up with her PCP at [phone] in the residency clinic. Patient is currently clinically stable and ready for discharge. Patient's white blood cell count is 7.8 (within normal limits) both the patient's procalcitonin and lactic acid are normal. acute, active Right axillary and upper arm cellulitis with abscess, POA, likely from razor injury. Right axilla tender, warm, with progression of erythema, WBC 12.2. Symptoms progressive despite 2-day outpatient treatment with Bactrim and 2 doses of Keflex.Culture from [facility] for abscess fluid showed (spoke to , ED physician) MRSA Sensitive to vanc, linezolid, dapto, Resistant to cipro, clinda, levo -Continue on IV vancomycin discontinued on 09/01/2016, Levofloxacin 750 mg Q24H was discontinued on 08/30/2016 per culture results, clinically improving, likely send home with linezolid 7-10days course. -Noroco 5/325 PRN pain, stop dilaudid 1mg q4h -appreciate surgery input. no indication for surgery -Hidradenitis suppurativawas suspected, however, no chronic nature despite preceding left sided abscess, clear etiology of using razor, would treat as typical MRSA abscess/cellulitis. If it recurrent or unresolving likely needs further eval with dermatology and ID. -trend wbc, fever curve, pt still has persistent leukocytosis. -Discontinue IV vancomycin 09/01/2016 start linezolid 600 mg twice a day Allergic drug reaction to vancomycin (macular rash) -Persistent diffuse erythema (improved), developed with CFX allergy on adm, no signs of DRESS (drug rash with eosinophilia and systemic symptoms) - Most likely infusion reaction of vancomycin, the patient has responded well with a decreased rate of infusion and Benadryl chronic, stable, resolved #PCN/Cephalosporin allergy, Childhood allergy to penicillin, Mild hives noted upon presentation to ED (patient was on Keflex), Hives acutely worsened with dose of 2g Ceftriaxone in ED, resolved with with 125 mg Methylprednisolone and 50 mg Diphenhydramine. #CAROL, POA, resolved with IVF #Migraine with occasional hemiplegic features, Patient previously received Topamax for seven years but discontinued treatment last November, Patient reports 2- 3 migraines/yr adequately treated with Advil. Last episode (04/01/2016) mimicked stroke, however, hemiplegic features resolved with migraine treatment. -currently stable, monitor sx for now #Anxiety, not active #Pseudoseizures, not on AED, stable dispo: likely 2more days if patient clinically stable, diet: general diet Full Code dvt ppx: LMWH Exam Vital Signs (Last) Date Time Temp Pulse Resp B/P Pulse Ox O2 Delivery O2 Flow Rate FiO2 09/01/16 08:20 37.0 102 16 109/66 97 Room Air Exam Physical Exam: GEN: Patient was awake, alert, responding appropriately to questions HEENT: PERRLA, EOMI, Neck soft supple, trachea midline, nomocephalic/atraumatic CV: +S1/S2, RRR, systolic murmur auscultated Respiratory: CTAB, no wheezes, rales, rhonchi GI: +bowel sounds x4, soft, compressible, non TTP EXT: no c/c/e lower extremity, right axillary cellulitic lesions firm erythematous or edematous Skin: Macular rash secondary to vancomycin resolved Neuro: CN II-XII grossly intact Psych: mood and affect were appropriate Test 08/28/16 19:00 08/28/16 22:16 08/29/16 06:45 08/29/16 17:00 Hold Purple Top Tube Received (Received) Hold Blue Top Tube Received (Received) Lactic Acid Level 1.6mmol/L (0.4-2.0) HCG Beta Subunit 0.500mIU/mL Hold [place] Top Tube Received (Received) Hold Lazo Top Tube Received (Received) Urine Color Yellow (YELLOW) Urine Appearance Slightly cloudy Urine pH 6.0 (5.0-8.0) Urine Specific [place] 1.025 (1.003-1.035) Urine Protein Negativemg/dL (NEG,TRACE) Urine Glucose (UA) Negativemg/dL (NEGATIVE) Urine Ketones 15mg/dL (NEGATIVE) Urine Occult Blood Negative (NEGATIVE) Urine Nitrite Negative (NEGATIVE) Urine Bilirubin Negative (NEGATIVE) Urine Urobilinogen Normalmg/dL (NORMAL) Urine Leukocyte Esterase Negative (NEGATIVE) Urine RBC 0-2/hpf (0-2) Urine WBC 0-5/hpf (0-5) Urine Epithelial Cells Many/hpf (NONE-MOD) Urine Crystals Amorphous urates (NONE Urine Bacteria Few/hpf (NONE-FEW) Urine Hyaline Casts None/lpf (NONE) Urine Granular Casts None seen (NONE SEEN) Urine Waxy Casts None seen (NONE SEEN) Urine Red Blood Cell Casts None seen (NONE SEEN) Urine White Blood Cell Casts None seen (NONE SEEN) Urine Mucus Present (None Seen) Urine Trichomonas None seen (NONE SEEN) Urine Yeast None (NONE SEEN) Urinalysis Comment None Hold Urine Received (Received) Direct Bilirubin 0.2mg/dL (0.0-0.3) Test 08/31/16 05:34 09/01/16 06:17 09/01/16 10:08 Neutrophils (%) (Auto) 42.7% (40-74) Lymphocytes (%) (Auto) 39.0% (14-46) Monocytes (%) (Auto) 8.1% (4-12) Eosinophils (%) (Auto) 9.1% (0-5) Basophils (%) (Auto) 0.6% (0-3) Phosphorus Level 3.2mg/dL (2.5-4.9) Magnesium Level 1.7mg/dL (1.6-2.6) Procalcitonin 0.03ng/mL (0.00-0.08) White Blood Count 7.8th/mm3 (3.8-10.1) Red Blood Count 4.55mil/mm3 (3.90-5.20) Hemoglobin 12.5g/dL (12.0-15.6) Hematocrit 39.0% (35.0-46.0) Mean Corpuscular Volume 85.7fL (81-100) Mean Corpuscular Hemoglobin 27.5pg (27.0-35.0) Mean Corpuscular Hemoglobin Concent 32.1% (32.0-37.0) Red Cell Distribution Width 12.4% (12.3-15.4) Platelet Count 304bil/L (150-400) Sodium Level 136mEq/L (134-144) Potassium Level 4.6mEq/L (3.5-5.2) Chloride Level 100mEq/L (97-108) Carbon Dioxide Level 24mmol/L (18-29) Blood Urea Nitrogen 7mg/dL (6-20) Creatinine 0.83mg/dL (0.57-1.00) Estimat Glomerular Filtration Rate 116mL/min (>59) Glucose Level 83mg/dL (60-99) Calcium Level 8.5mg/dL (8.5-10.1) Total Bilirubin 0.2mg/dL (0.0-1.2) Aspartate Amino Transf (AST/SGOT) 50U/L (0-50) Alanine Aminotransferase (ALT/SGPT) 43U/L (0-32) Alkaline Phosphatase 51U/L (25-150) Total Protein 6.0g/dL (6.4-8.4) Albumin 3.7g/dL (3.4-5.0) Vancomycin Level Trough 9.6mcg/mL Discharge Medications Discharge Medications Ibuprofen (Ibuprofen) 800 Mg Tablet 800 MG PO TID (Reported) Linezolid (Linezolid) 600 Mg Tablet 600 MG PO BID Prescribed by: VISH PALMER, DO As needed Aspirin/Acetaminophen/Caffeine (Sbycedi-Pkqvwagirerhc-Gnap Tab) 250 Mg-250 Mg- 65 Mg Tablet 2 EACH PO Q8H PRN PRN For Headache (Reported) Hydrocodone-Acetaminophen 5-325 mg (Hydrocodone-Acetaminophen 5-325 mg) 1 Each Tablet 1 TABLET PO QID PRN PRN For Pain (Reported) Ibuprofen (Ibuprofen) 200 Mg Capsule 200-400 MG PO QID PRN PRN For Pain ( Reported) Additional med instructions Please take all of her medications as prescribed please do not save any pills or a later use. Followup Plan Disposition: Stable condition being discharged home Discharge Diet: Heart Healthy Discharge Activity: No restrictions (gradually return to normal daily activities) Follow-up with PCP in: 1 week (Dr. Delong [phone] if an appointment has not been made please call to schedule an appointment) Time spent Greater than 35 minutes copies to: Darek Delong Precious L DO Sep 01, 2016 13:45
[2016-09-01 16:22] VITALS: BP 107/72; PULSE 91; RESP 17; O2SAT 96
--- NOTE | 2016-09-01 17:23 | PCM.PNMED ---
Subjective Date of Service Sep 01, 2016 Subjective Patient was seen and examined at bedside today. Patient denies any chest pain, shortness of breath, nausea, vomiting, diarrhea. Patient was scheduled to discharge today however patient had severe migraine and is currently not tolerating her diet and also is complaining of fever and chills so there is some concerns that the patient's infection is not responding well to the oral linezolid. Exam Vital Signs Vital Sign - Last Date Time Temp Pulse Resp B/P Pulse Ox O2 Delivery O2 Flow Rate FiO2 09/01/16 16:22 37.1 91 17 107/72 96 Room Air Intake and Output 08/31/16 08/31/16 09/01/16 Cumulative From/Thru 15:00 23:00 07:00 08/28/16 15:27 - 09/01/16 06:33 Intake Total 4137 ml 2028 ml 35811 ml Output Total 2700 ml 7650 ml Balance 1437 ml 2028 ml 3871 ml Intake Oral 1400 ml 536 ml 5572 ml IV Total 2737 ml 1492 ml 5949 ml Output Urine Total 2700 ml 7650 ml # Voids 2 12 # Bowel Movements 3 Exam Physical Exam: GEN: Patient was awake, alert, responding appropriately to questions HEENT: PERRLA, EOMI, Neck soft supple, trachea midline, nomocephalic/atraumatic CV: +S1/S2, RRR, systolic murmur auscultated Respiratory: CTAB, no wheezes, rales, rhonchi GI: +bowel sounds x4, soft, compressible, non TTP EXT: no c/c/e lower extremity, right axillary cellulitic lesions firm erythematous or edematous Skin: Macular rash secondary to vancomycin resolved Neuro: CN II-XII grossly intact Psych: mood and affect were appropriate IVs and Medications Medications Reviewed: Medications were reviewed in detail Lab and Diagnostics Result Diagram: 09/01/1661609/01/16616 Additional Diagnostics PROCEDURE: US EXTREMITY SONOGRAM LIMITED (14032) FINDINGS: There has been in the right upper arm an abscess drained on 08/26/16 and the axillary area. In this area there is artifact from hair. Distal to this and thought to be in the arm is an irregular hypoechoic area thought to be developing abscess. It is somewhat phlegmonous and measures overall 28 x 6 x 14 mm. It is not a fluid collection that is drainable by needle at this point. It is not encapsulated and no prominent flow around it is seen. IMPRESSION: Phlegmonous appearing area distal to the recently drained abscess in the right axilla. No defined abscess or loculated fluid collections are identified. Dictated by: Sy Bhagat M.D. on 08/28/2016 at 21:35 Assessment & Plan 30-year-old female with history of left axillary abscess drainage one month ago presented to the emergency department with increasing swelling, redness and pain after drainage of right axillary abscess at [facility] emergency Department 2 days ago. acute, active Right axillary and upper arm cellulitis with abscess, POA, likely from razor injury. Right axilla tender, warm, with progression of erythema, WBC 12.2. Symptoms progressive despite 2-day outpatient treatment with Bactrim and 2 doses of Keflex.Culture from [place] ED for abscess fluid showed (spoke to , ED physician) MRSA Sensitive to vanc, linezolid, dapto, Resistant to cipro, clinda, levo -Continue on IV vancomycin discontinued on 09/01/2016, Levofloxacin 750 mg Q24H was discontinued on 08/30/2016 per culture results, clinically improving, likely send home with linezolid 7-10days course. -Noroco 5/325 PRN pain, stop dilaudid 1mg q4h -appreciate surgery input. no indication for surgery -Hidradenitis suppurativawas suspected, however, no chronic nature despite preceding left sided abscess, clear etiology of using razor, would treat as typical MRSA abscess/cellulitis. If it recurrent or unresolving likely needs further eval with dermatology and ID. -trend wbc, fever curve, pt still has persistent leukocytosis. -Discontinue IV vancomycin 09/01/2016 start linezolid 600 mg twice a day Migraine -OMT - Tylenol and ibuprofen -Continue to monitor Allergic drug reaction to vancomycin (macular rash) -Persistent diffuse erythema (improved), developed with CFX allergy on adm, no signs of DRESS (drug rash with eosinophilia and systemic symptoms) - Most likely infusion reaction of vancomycin, the patient has responded well with a decreased rate of infusion and Benadryl chronic, stable, resolved #PCN/Cephalosporin allergy, Childhood allergy to penicillin, Mild hives noted upon presentation to ED (patient was on Keflex), Hives acutely worsened with dose of 2g Ceftriaxone in ED, resolved with with 125 mg Methylprednisolone and 50 mg Diphenhydramine. #CAROL, POA, resolved with IVF #Migraine with occasional hemiplegic features, Patient previously received Topamax for seven years but discontinued treatment last November, Patient reports 2- 3 migraines/yr adequately treated with Advil. Last episode (04/01/2016) mimicked stroke, however, hemiplegic features resolved with migraine treatment. -currently stable, monitor sx for now #Anxiety, not active #Pseudoseizures, not on AED, stable diet: general diet Full Code dvt ppx: LMWH Disposition: The patient was stable earlier and ready to be discharged home however the patient developed a migraine with aura but then started having chills. We will monitor the patient for one more day to ensure that the patient 's infection is not resurfacing and that it is continuing to be responding to linezolid. Patient should be ready for discharge home tomorrow. GI Prophylaxis: Not indicated VTE Prophylaxis: Sub-Q Enoxaparin VTE Mechanical Devices: Intermittant Pneumatic CD Time spent Greater than 35 minutes Diana Barbosa DO Sep 01, 2016 17:23
--- NOTE | 2016-09-01 20:00 | NUR ---
ACTIVITY Patient continues to complain of a migraine headache. Motrin and APAP PO administered. Via FELDT scale patients pain level is 0/10. Patient would be noted to be napping in her room after her pain medication. Patient complained of nausea this morning. She is relating this to her migraines. She has been tolerating her meals and PO liquids fairly. No emesis noted. Denies SOB. Patient's puncture site is CDI. No drainage noted. She has been ambulating independently in the room. Tolerating activity well. D/C on hold at this time. PO ABT started. Care continues.
[2016-09-01 20:53] VITALS: BP 116/74; PULSE 94; RESP 18; O2SAT 97
--- NOTE | 2016-09-02 03:32 | NUR ---
Headache Pt reporting headache 9/10 and right armpit pain 5/10 and requested to have Motrin 800mg. On reassessment, pt sleeping and appears comfortable. Pt did not want to take IV pepcid at bedtime since she has been SL and felt she did not need it. Right armpit appears less red today, small puncture site open to air, no drainage. Pt has been able to sleep most of shift.
[2016-09-02 06:16] VITALS: BP 111/69; PULSE 108; RESP 18; O2SAT 95
[2016-09-02 07:54] LABS: Mean Corpuscular Hemoglobin 27.6 pg (27.0-35.0)
[2016-09-02] MEDS: Famotidine Inj 20 MG in IV Premix 1 EACH IV SCH (08:30)
[2016-09-02] MEDS ORDERED: Butalbital-Acet-Caffeine Tablet PO ONE (08:45)
--- NOTE | 2016-09-02 11:10 | NUR ---
Social work Note - Readiness for D/C RN TELEMETRY met with Pt - Pt states she is feeling better and is ready to d/c home today. Her friend will drive her home. Pt states she has support and will follow up with her PCP next week. No other needs identified. Plan: Home today in POV> BRI [place]
--- NOTE | 2016-09-02 13:03 | NUR ---
DISCHARGE PATIENT DISCHARGED HOME WITH SPOUSE.PATIENT GIVEN HARD COPY OF SCRIPT FOR ANTIBIOTIC. PATIENT GIVEN VERBAL AND WRITTEN DC INSTRUCTIONS AND AGREED TO UNDERSTANDING THEM. PATIENT WILL FOLLOW UP WITH DR IN 1 WEEK. PATIENT'S BELONGINGS SENT HOME WITH PATIENT.
[2016-09-03] MEDS ORDERED: ONDA4TAB12 PO (15:09)
[2016-09-03] MEDS ORDERED: METR500T19 PO (15:09)
[2016-09-03] MEDS ORDERED: LACT1CAP65 PO (15:16)
== END 2016-09-02 12:40 | disposition home or self-care (01) | DRG 603 ==
LOC: SED 15:16 → OSC 23:40
PROVIDERS: ADMIT Hospitalist; ATTEND Hospitalist
DX: L03.111 Cellulitis of right axilla (principal); G43.409 Hemiplegic migraine, not intractable, without status migrainosus; L27.1 Localized skin eruption due to drugs and medicaments taken internally; F17.200 Nicotine dependence, unspecified, uncomplicated; Z79.82 Long term (current) use of aspirin; T36.8X5A Adverse effect of other systemic antibiotics, initial encounter; B95.62 Methicillin resistant Staphylococcus aureus infection as the cause of diseases classified elsewhere; Y92.230 Patient room in hospital as the place of occurrence of the external cause

== ENCOUNTER 2016-09-03 10:43 | Emergency (ER) | payer MEDICARE ==
[~2016-09-03 10:43] MED LIST changes: +ASPI-1148 PO; +HYDR-4003 PO; +IBUP200C PO; +IBUP800T28 PO; +LINE600T7 PO; -[UNRECOGNIZED DRUG - CODE] AFFECT_EYE
[2016-09-03 10:44] VITALS: BP 126/80; PULSE 96; RESP 18; O2SAT 98
[2016-09-03] MEDS ORDERED: Ondansetron 8 mg ODT Tablet PO ONE (12:50)
--- NOTE | 2016-09-03 12:51 | ED.REPORT ---
HPI-NVD Date of Service Sep 03, 2016 ED Provider: Samuel Mendes MD Chetna is otherwise healthy 30-year-old female who presents with a chief complaint of vomiting and diarrhea. Patient reports that she was discharged from the hospital yesterday after being treated inpatient for abscess/ cellulitis in her right axilla. Culture and sensitivity indicates MRSA susceptible to vancomycin, linezolid, daptomycin. Patient has been variably treated over the last week with by mouth Bactrim, Keflex and IV levofloxacin and vancomycin, which was DC'd yesterday. She was discharged home with a prescription for by mouth linezolid. However, she states that she cannot afford this medication as it will cost her $3000 for the course. Since her discharge she has had 2 episodes of nonbloody vomiting as well as any episodes of liquid diarrhea associated with abdominal cramps and lower back pain. She denies fever, chills, sweats, malaise, difficulty breathing, chest pain, . She reports that her abscess is healing well although areas of firmness remain. Nursing Notes Stated Complaint: DIARRHEA/VOMITING/NAUSEATED Chief Complaint: Female Abdominal Pain Nursing Notes Reviewed: Yes Allergies: Coded Allergies: ceftriaxone (Verified Allergy, Mild, rash, 09/03/16) cephalexin (Verified Allergy, Mild, Rash, 09/03/16) Penicillins (Verified Allergy, Unknown, Anaphylaxis, 09/03/16) Uncoded Allergies: IV Benadryl (Adverse Reaction, Intermediate, 08/29/16) felt like she had no control of her own body Scheduled Ibuprofen (Ibuprofen) 800 Mg Tablet 800 MG PO TID Lactobacillus Acidophilus (Probiotic) 1 Each Capsule 1 EACH PO DAILY Linezolid (Linezolid) 600 Mg Tablet 600 MG PO BID Metronidazole (Metronidazole) 500 Mg Tablet 500 MG PO TID Ondansetron ODT (Ondansetron ODT) 4 Mg Tab.rapdis 4-8 MG PO TID Scheduled PRN Aspirin/Acetaminophen/Caffeine (Ybumztc-Xrjgwdhsajzdj-Keot Tab) 250 Mg-250 Mg- 65 Mg Tablet 2 EACH PO Q8H PRN PRN For Headache Hydrocodone-Acetaminophen 5-325 mg (Hydrocodone-Acetaminophen 5-325 mg) 1 Each Tablet 1 TABLET PO QID PRN PRN For Pain Ibuprofen (Ibuprofen) 200 Mg Capsule 200-400 MG PO QID PRN PRN For Pain General Time Seen by MD: 12:44 Chief Complaint Diarrhea Past Medical History Past Medical History anxiety pseudo-seizures partially deaf Past Surgical History Denies Family History noncontributory Smoking History Never Smoker Social History Alcohol Use: "Social" Drug Use: Denies drug use Other Social History: Good social support Ambulatory Status Independent Review of Systems General: Denies fever, chills, malaise. HEENT: Denies congestion, headache, sore throat. Respiratory: Denies dyspnea, cough, shortness of breath, wheezing. Cardiovascular: Denies chest pain, palpitations. Gastrointestinal: Admits vomiting, diarrhea, abdominal pain. Genitourinary: Denies frequency, urgency, dysuria, hematuria. Denies . Otherwise as noted in HPI. Physical Exam General: Well appearing, well developed, well nourished, no acute distress. Head: Atraumatic, normocephalic. Eyes: No scleral icterus or injection. No discharge. Vision grossly intact. ENT: Voice clear, hearing grossly intact. Respiratory: Regular rate and rhythm. Breath sounds present, clear to auscultation and equal bilaterally. No respiratory distress. No increased work of breathing, speaks in complete sentences. Cardiovascular: Regular rate and rhythm, without murmur, gallop or rub. No pedal edema. Gastrointestinal: Mild global abdominal tenderness without guarding or rebound. Bowel sounds hyperactive. 2 cm ecchymosis on left anterior abdomen consistent with heparin injection. Skin: Warm and dry. Right axilla: 2 cm healing incision, no redness, swelling, discharge. There is a small area of tender firmness felt below the skin at approximately the 10 o' clock position to the incision. Neurological: Grossly nonfocal. Psychological: Alert and oriented. Speech appropriate, linear and logical. Behavior appropriate. Initial Vital Signs Vital Signs (First) Date Time Temp Pulse Resp B/P Pulse Ox O2 Delivery O2 Flow Rate FiO2 09/03/16 10:44 36.6 96 18 126/80 98 Room Air Initial VS: Reviewed, Vital signs normal Interpretation & Diagnostics Interpretation & Diagnostics: Labs from the recent days review Lab Results Interpretation Lab Results Interpretation: Stool studies for C. difficile pending Re-Eval/Medical Decision Med Decision/Clinical Course I discussed this case with Dr. Mendes. Dr. Mendes: This is a 30-year-old female recently admitted for MRSA abscess treated with vancomycin, discharged a prescription for linezolid which she was unable to fill due to expense. She then developed diarrhea and the diarrhea is what brought her to the emergency department today. The patient's nontoxic, soft nontender abdomen, normal vitals. She needs align her labs and just had recent laboratory studies. She is comfortable with this. I would be concerned given the multiple antibiotic exposures including a fluoroquinolone among others is the possibility of C. difficile. The patient has been able to give a stool sample, and stool for PCR C. difficile is pending-as explained. Likely resulted next couple days. However we have decided go ahead and initiate empiric treatment with oral Flagyl for this likely possibility. Lastly is concerned about the wounds which appear to be doing clinically well- the notes from the discharge summary implied cultures positive there were resistant to multiple meds, but I talked with the hospitalist is confined cultures, and it turns out the patient's had issues with clindamycin not listed allergy profile before. Further review the patient's a candidate for doxycycline which is a much less expensive and more available at [facility], and the hospital sexually wrote the prescription for this. She is being discharged home on oral Flagyl, she is also given a perception for an oral probiotic. She cannot finish the doxycycline, she will call tomorrow for results of the stool studies. Routine precautions reviewed. She is being discharged stable condition Source of Hx: Old records Consultation : Referral / Consult Name: Diana Barbosa DO Consulted With: Hospitalist (who was involved in her inpatient stay) Note: Discussed the antibiotics, Doxycline will be used instead of linezolid Discharge & Departure Impression: Primary Impression: Diarrhea Additional Impressions: C. difficile diarrhea Cellulitis Site of cellulitis: unspecified site Qualified Code: L03.90 - Cellulitis, unspecified Disposition: Home Discharge Condition All VS Reviewed: Yes Condition: Stable Patient Instructions: Acute Diarrhea (ED) Additional Instructions: Evaluation for vomiting and diarrhea in the emergency department. Considering your history of recent intense antibiotic therapy, we are concerned that this might be C. difficile colitis, an overgrowth of bacteria in your gut. The treatment for this is Flagyl, to be taken 3 times a day for 10 days. We have taken a stool sample in the emergency department. Please call back late tomorrow to get the results. If you are negative for C. difficile, he will be able to stop taking the Flagyl at that time. We discussed changing the antibiotic therapy for your cellulitis. Doxycycline will be less expensive and effective. Please take the doxycycline twice a day for 10 days. I will also provide you with a prescription for antinausea medication. Follow up with your primary care provider on Thursday as planned. Return to emergency department for new or worsening symptoms including increasing pain, fever, vomiting not controlled with medication. Referrals: [facility] (PCP) EDSupervising Provider for APC: Samuel Mendes MD Attending Statement I supervised and discussed this case with the mid-level provider, I also person contacted the social workers, discussed the case the hospitalist who admitted the patient before, reviewed the labs and inpatient notes to help coordinate care. copies to: [facility] Elijah Larsen PA-C Sep 03, 2016 12:51 Samuel Mendes MD Sep 03, 2016 15:27
[2016-09-03] MEDS ORDERED: METR500T19 PO (15:09)
[2016-09-03] MEDS ORDERED: ONDA4TAB12 PO (15:09)
[2016-09-03] MEDS ORDERED: LACT1CAP65 PO (15:16)
[2016-09-03 15:46] VITALS: BP 122/80; PULSE 95; RESP 16; O2SAT 94
== END 2016-09-03 15:46 | disposition home or self-care (01) ==
LOC: SED 10:43
DX: A04.7 Enterocolitis due to Clostridium difficile (principal); L03.111 Cellulitis of right axilla; B95.62 Methicillin resistant Staphylococcus aureus infection as the cause of diseases classified elsewhere; H91.90 Unspecified hearing loss, unspecified ear; Z86.69 Personal history of other diseases of the nervous system and sense organs; Z88.0 Allergy status to penicillin; Z88.1 Allergy status to other antibiotic agents

== ENCOUNTER 2016-09-09 10:06 | Emergency (ER) | payer MEDICARE ==
[~2016-09-09] VITALS: Ht 157.5 cm; Wt 72.7 kg
[~2016-09-09 10:06] MED LIST changes: +LACT1CAP65 PO; +METR500T19 PO; +ONDA4TAB12 PO
[2016-09-09 10:12] VITALS: BP 122/79; PULSE 92; RESP 16; O2SAT 99
--- NOTE | 2016-09-09 11:14 | ED.REPORT ---
HPI-Allergic Reaction Date of Service Sep 09, 2016 ED Provider: Michael Philip MD Pt is a previously healthy 30 y/o female presenting to the ED c/o diffuse rash onset 3 days ago. She was initially diagnosed with an axillary abscess and was admitted and treated with Vancomycin which caused hives and rash. She was switched to Keflex and had another rash reaction. She was discharged and subsequently developed diarrhea and was seen for this and diagnosed with colitis with concern for C. diff and was sent home on Trimethoprim sulfa and metronidazole which were started 09/03, last dose was yesterday. She was seen at [facility] yesterday for her rash and was told Bactrim may be the cause. She stopped the Bactrim but her rash is persistent and increasing. Pt is taking Benadryl 25 mg every 6 hours without relief. She is not taking steroids. Her rash has never fully resolved since leaving the hospital. She has also noticed sores about the sides of her mouth for 3 days, mild cough, swelling of the hands and feet. She describes her rash as burning and stinging without itching. She denies fever, chills, nausea, vomiting, vaginal sores. To summarize patient's treatment and antibiotic exposure thus far, the patient was seen here on 08/28 and admitted with a cellulitis and axillary abscess. She had previously been treated at [facility] with incision and drainage. Cultures grew out MRSA sensitive to vancomycin linezolid and daptomycin among others. Cultures are not available here, there were done at [facility]. She was treated with trimethoprim/sulfa prior to the admission without any adverse reaction. The patient was also treated with cephalexin, Notes indicate that the patient may have been reacting to that, she clearly had an acute reaction to Rocephin with immediate hives. Rocephin was discontinued vancomycin was started, she also apparently had a reaction to vancomycin on this though this was continued from the to the . During her hospitalization the patient reported that she continued to have hives on her chest wall. She was also treated with Levaquin while in the hospital and discharged with a prescription for linezolid. The patient never received linezolid as it was $3000 for the course and she did not fill the prescription. She was subsequently seen in the emergency department on the . The patient reported at that time she was concerned about needing continued antibiotics and has also developed diarrhea. Chart notes from the emergency department indicate that she was discharged with a prescription for doxycycline. Interestingly her bottle filled on 3:15 which the patient insists was prescribed at that emergency department visit was for trimethoprim sulfa. Also started on metronidazole oral at that time for presumed C. difficile. Stool was sent for C. difficile and has returned negative. The patient has had an increase in her rash and is complaining of burning in her palms and soles and she relates the onset of her increased symptoms to restarting trimethoprim sulfa. She reports that the symptoms of her axillary infections have completely resolved. Nursing Notes Stated Complaint: HIVES,SWOLLEN HANDS AND FEET Chief Complaint: Allergic Reaction Nursing Notes Reviewed: Yes Allergies: Coded Allergies: ceftriaxone (Verified Allergy, Mild, rash, 09/03/16) cephalexin (Verified Allergy, Mild, Rash, 09/03/16) Penicillins (Verified Allergy, Unknown, Anaphylaxis, 09/03/16) Uncoded Allergies: IV Benadryl (Adverse Reaction, Intermediate, 08/29/16) felt like she had no control of her own body Scheduled Ibuprofen (Ibuprofen) 800 Mg Tablet 800 MG PO TID Lactobacillus Acidophilus (Probiotic) 1 Each Capsule 1 EACH PO DAILY Linezolid (Linezolid) 600 Mg Tablet 600 MG PO BID Methylprednisolone (MethylprednisoLONE Dose Caleb) 4 Mg Tab.ds.pk 4 MG PO UD Follow direction on package. Metronidazole (Metronidazole) 500 Mg Tablet 500 MG PO TID Ondansetron ODT (Ondansetron ODT) 4 Mg Tab.rapdis 4-8 MG PO TID Scheduled PRN Aspirin/Acetaminophen/Caffeine (Eqgefzy-Knrdrlljomjbc-Vaaa Tab) 250 Mg-250 Mg- 65 Mg Tablet 2 EACH PO Q8H PRN PRN For Headache Hydrocodone-Acetaminophen 5-325 mg (Hydrocodone-Acetaminophen 5-325 mg) 1 Each Tablet 1 TABLET PO QID PRN PRN For Pain Ibuprofen (Ibuprofen) 200 Mg Capsule 200-400 MG PO QID PRN PRN For Pain General Time Seen by MD: 11:12 Chief Complaint Rash Hx Obtained From: Patient Arrived By: Walk-in Onset Occurred: 3 days ago Symptom Duration: Since onset Progression Since Onset: Constant Severity: Current: No pain currently Severity: Maximum: No pain Recent Healthcare: Recent doctor visit, Previous diagnosis Similar Sx Previous: Yes Past Medical History Past Medical History anxiety pseudo-seizures partially deaf Past Surgical History Denies Family History noncontributory Smoking History Never Smoker Social History Alcohol Use: "Social" Drug Use: Denies drug use Other Social History: Good social support Ambulatory Status Independent Review of Systems Constitutional: Denies: Chills, Fever Respiratory: Reports: Non-productive cough, Denies: Shortness of breath GI: Reports: Diarrhea, Denies: Nausea, Vomiting Skin: Reports Rash, Reports Swelling Allergy / Immune: Reports: Hives, Denies: Itching Complete sys rev & neg: except as marked. Physical Exam Initial Vital Signs Vital Signs (First) Date Time Temp Pulse Resp B/P Pulse Ox O2 Delivery O2 Flow Rate FiO2 09/09/16 10:12 36.6 92 16 122/79 99 Room Air Initial VS: Reviewed, Vital signs normal Head / Eyes: Atraumatic, Normocephalic, PERRL Neck: Supple, Full range of motion Extremities: Vascular intact, Neuro intact, No swelling, No tenderness Neurologic: Alert, Oriented, Nonfocal Psychiatric: Mood/affect normal, Behavior normal, Normal thought content General/Constitutional: Awake, Alert, No acute distress, Well appearing, Cooperative, Not toxic appearing Respiratory / Chest: Atraumatic, No respiratory distress, No retractions, No stridor, No chest tenderness, No chest wall deformity, No crepitus Crackles left base Cardiovascular: Heart rate NL, Regular rhythm, Heart sounds NL, No gallop, No murmurs, No rubs, Cap refill not delayed, Peripheral circulation NL Skin: Atraumatic, Warm, Dry, Intact Color / Condition: Positive: Rash present Rash / Lesion Notes: Central rash that is red and not palpable. Confluent macules. Palms and soles are involved with erythema. Sensitive to touch. ENT: Atraumatic, Airway patent, Mucous membranes moist Dry cracked lips Coronal papillae over tongue Abdomen: Atraumatic, Soft, Non-tender, No guarding, No rebound, No distention, No palpable mass Upper Extremity / MS: Atraumatic, Inspection NL, Full range of motion, No swelling, Non-tender, No erythema, No deformity, Neurologic intact, Vascular intact, No ligamentous injury, Tendon function NL, No compartment syndrome, No clubbing/cyanosis, No edema Axilla normal bilaterally Female Genitourinary: Professor Of Exercise Science present (CELIA Moreau), Atraumatic Normal external genitalia No mucousal lesions Whitish discharge, questionable yeast infection Interpretation & Diagnostics Lab Results Interpretation Result Diagram: 09/09/16 1110 09/09/16 1110 Test 09/09/16 11:10 09/09/16 12:45 White Blood Count 8.6th/mm3 (3.8-10.1) Red Blood Count 4.75mil/mm3 (3.90-5.20) Hemoglobin 13.2g/dL (12.0-15.6) Hematocrit 40.1% (35.0-46.0) Mean Corpuscular Volume 84.4fL (81-100) Mean Corpuscular Hemoglobin 27.8pg (27.0-35.0) Mean Corpuscular Hemoglobin Concent 32.9% (32.0-37.0) Red Cell Distribution Width 12.4% (12.3-15.4) Platelet Count 322bil/L (150-400) Neutrophils (%) (Auto) 64.3% (40-74) Lymphocytes (%) (Auto) 24.6% (14-46) Monocytes (%) (Auto) 6.4% (4-12) Eosinophils (%) (Auto) 3.9% (0-5) Basophils (%) (Auto) 0.3% (0-3) Hold Purple Top Tube Received (Received) Hold Blue Top Tube Received (Received) Sodium Level 138mEq/L (134-144) Potassium Level 4.3mEq/L (3.5-5.2) Chloride Level 104mEq/L (97-108) Carbon Dioxide Level 21mmol/L (18-29) Blood Urea Nitrogen 7mg/dL (6-20) Creatinine 0.90mg/dL (0.57-1.00) Estimat Glomerular Filtration Rate 105mL/min (>59) Glucose Level 81mg/dL (60-99) Calcium Level 8.8mg/dL (8.5-10.1) Total Bilirubin 0.2mg/dL (0.0-1.2) Aspartate Amino Transf (AST/SGOT) 19U/L (0-50) Alanine Aminotransferase (ALT/SGPT) 23U/L (0-32) Alkaline Phosphatase 56U/L (25-150) Total Protein 7.2g/dL (6.4-8.4) Albumin 4.3g/dL (3.4-5.0) Hold Red Top Tube Received (Received) Hold Harwood Top Tube Received (Received) Hold Urine Received (Received) Lab Results Interpretation: C. diff negative 09/04/16 Re-Eval/Medical Decision Re-Evaluation/Progress : Time of Eval: 13:14 Re-Evaluation/Progress Note: Pt rechecked. Axillary exam performed, no abnormalities. Discussed need for specialized f/u. Informed pt of plan for treatment. Pt understands and agrees with plan for treatment. F/U instructions and RTER warnings given. All questions addressed. Consultation : Call Returned at: 13:08 Factory Lay Out Engineer: Agrees with eval, Agrees with plan Note: Case discussed with grinding wheel facer Francisco Overton. He will see her in follow-up. Counseled Regarding: Diagnosis, Lab results, Need for follow-up, When/why to return to ED Discharge & Departure Primary Impression: Drug-induced skin rash Disposition: Home Discharge Condition All VS Reviewed: Yes Condition: Stable Patient Instructions: Acute Rash (ED) Additional Instructions: Emergency Department course today included reexamination labs and discussion with a grinding wheel facer. This appears to be a drug-induced skin rash, given the multiple recent antibiotic exposures it is unclear which one is currently causing the rash however trimethoprim sulfa is suspected. Stop trimethoprim sulfa and metronidazole. C. difficile testing from earlier was negative and infection in armpits appears to have resolved. We started a dose of prednisone today, started the Medrol Dosepak tomorrow. Continue with Benadryl as needed for itching and rash. Follow up tomorrow with dermatology, check in at the [facility] at [address] Francisco Overton. Emergency department for shortness of breath swelling in tongue or throat fevers, feeling weak. Referrals: [facility] ([facility]) Abe Overton Attestation Portions of this note were transcribed by Lawrence Bass. I, Dr. Philip personally performed the history, physical exam and medical decision-making; I reviewed and confirmed the accuracy of the information in the transcribed note. Signed by Cierra Canseco, 09/09/16 - [id number] copies to: [facility]; Abe Overton Donald L MD Sep 09, 2016 11:14 LAWRENCE BASS Sep 09, 2016 11:15
[2016-09-09] MEDS ORDERED: 0.9% Sodium Chloride 1,000 ML IV ONE (11:52)
[2016-09-09 12:07] LABS: BASOPHILS % (AUTO) 0.3 % (0-3); EOSINOPHILS % (AUTO) 3.9 % (0-5); MONOCYTES % (AUTO) 6.4 % (4-12); Mean Corpuscular Hemoglobin 27.8 pg (27.0-35.0); Mean Corpuscular Volume 84.4 fL (81-100); NEUTROPHILS % (AUTO) 64.3 % (40-74); Platelet Count 322 bil/L (150-400)
[2016-09-09] MEDS ORDERED: predniSONE 20 mg Tablet PO ONE (13:40)
[2016-09-09] MEDS ORDERED: METH4TAB11 PO (13:50)
[2016-09-09 14:01] VITALS: BP 119/79; PULSE 95; RESP 18; O2SAT 98
== END 2016-09-09 13:51 | disposition home or self-care (01) ==
LOC: SED 10:06
DX: L27.0 Generalized skin eruption due to drugs and medicaments taken internally (principal); T36.8X5A Adverse effect of other systemic antibiotics, initial encounter; Y93.89 Activity, other specified; Y92.89 Other specified places as the place of occurrence of the external cause; Y99.8 Other external cause status; K13.79 Other lesions of oral mucosa; R05 Cough; M79.89 Other specified soft tissue disorders; R19.7 Diarrhea, unspecified; R20.8 Other disturbances of skin sensation; Z88.0 Allergy status to penicillin; Z88.1 Allergy status to other antibiotic agents
CPT/HCPCS: 36415; 80053; 85025; 96360; 99284; J7030